=== PATIENT | male | born 1950 | race Two or more races ===

== ENCOUNTER 2023-11-01 19:07 | Emergency (ER) | payer MEDICARE ==
[~2023-11-01] VITALS: Ht 162.6 cm; Wt 75.4 kg
[2023-11-01 19:34] VITALS: BP 127/49; PULSE 65; RESP 18; TEMP 98.6; O2SAT 100
[2023-11-01] MEDS ORDERED: TRAM50TA2 PO ×2 (22:12)
[2023-11-01] MEDS ORDERED: HYDROcodone-ACET 5/325MG TAB PO ONE (22:15)
== END 2023-11-01 23:42 | disposition home or self-care (01) ==
LOC: ER 19:07
DX: S82.001A Unspecified fracture of right patella, initial encounter for closed fracture (principal); M25.461 Effusion, right knee; I10 Essential (primary) hypertension; E78.5 Hyperlipidemia, unspecified; W18.09XA Striking against other object with subsequent fall, initial encounter; Y93.89 Activity, other specified; Y92.89 Other specified places as the place of occurrence of the external cause; Y99.8 Other external cause status
CPT/HCPCS: 29505; 73564